=== PATIENT | female | born 1995 | race African-American/Black ===

== ENCOUNTER 2021-01-01 10:42 | Inpatient (IN) ==
[2021-01-11] MEDS ORDERED: GLUCAGON 1 MG VIAL IM PRN (08:19)
[2021-01-11] MEDS ORDERED: DEXTROSE 50% 25 GM/50 ML VIAL IV PRN (08:19)
[2021-01-11] MEDS: INSULIN REGULAR 100 UNIT/ML SUBCUT SCH ×3 (08:40→20:58)
[2021-01-11 08:56] LABS: Basophils % 0.2 % (0.0-0.8); Eosinophils # 0.1 10*3/uL (0.0-0.87); Hematocrit 34.8 VOL% (35.7-47.0); Hemoglobin 11.1 GM/DL (12.0-16.0); Immature Granulocytes % 0.2 %; Immature Granulocytes Absolute 0.01 #; Lymphocytes # 1.3 10*3/uL (1.4-4.0); Lymphocytes % 25.6 % (21.3-54.2); Mean Corpuscular HGB Conc 31.9 GM/DL (32-36); Mean Corpuscular Volume 91.8 FL (87-102); Mean Platelet Volume 9.7 FL (9.6-12.0); Monocytes % 6.6 % (1.7-12.7); Neutrophils % 66.4 % (38.7-73.9); Platelet Count 231 T/CUMM (130-400); Red Blood Count 3.79 MC/CUMM (3.8-5.5); Red Cell Distribution Width 12.7 % (9.3-17.3); White Blood Count 5.2 T/CUMM (4-12)
[2021-01-11 09:02] LABS: Bacteria,Urine Occasional /HPF (Few); Bilirubin,Urine Negative (Negative); Blood, Urine Negative (Negative); Glucose,Urine (UA) >=500 mg/dL (Negative); Ketones,Urine Negative (Negative); Nitrite,Urine Negative (Negative); Protein,Urine Negative; RBC,Urine 3 /HPF (0-4); Squamous Epithelial Cell,Urine Occasional /HPF (0-10); Urine Appearance Slightly Hazy (Clear); Urine Color Yellow (Yellow); Urine Specific Gravity 1.038 (1.001-1.035)
[2021-01-11] MEDS: MULTIVITAMIN (PRENATAL) TABLET PO SCH (09:02)
[2021-01-11] MEDS: FOLIC ACID 1 MG TABLET PO SCH (09:02)
[2021-01-11 09:12] LABS: Calcium 8.9 MG/DL (8.5-10.1); Osmolality,Calculated 276.8 MOS/KG (273-304); Potassium 3.7 MMOL/L (3.5-5.1)
[2021-01-11 10:22] LABS: HIV Antigen/Antibody Result Nonreactive (Nonreactive); Hepatitis B Core IgM Quant 0.13 Index; Hepatitis B Surface Ag Quant < 0.10 Index; Hepatitis B Surface Ag Result Non-Reactive (NonReactive); Hepatitis C Virus Ab Quant < 0.02 Index; Hepatitis C Virus Ab Result Non-Reactive (NonReactive)
[2021-01-11 15:03] LABS: Rubella Antibody IgG Result Reactive (NonReactive)
[2021-01-11] MEDS: ALBUTEROL 2.5 MG/3 ML NEB RESP TX SCH (20:11)
[2021-01-11] MEDS: INSULIN GLARGINE 100 UNIT/ML SUBCUT SCH (20:57)
[2021-01-12] MEDS: ALBUTEROL 2.5 MG/3 ML NEB RESP TX SCH ×2 (08:31→19:11)
[2021-01-12] MEDS: ACETAMINOPHEN 325 MG TABLET PO PRN (08:46)
[2021-01-12] MEDS: INSULIN REGULAR 100 UNIT/ML SUBCUT SCH ×3 (08:47→21:01)
[2021-01-12] MEDS: MULTIVITAMIN (PRENATAL) TABLET PO SCH (09:01)
[2021-01-12] MEDS: FOLIC ACID 1 MG TABLET PO SCH (09:01)
[2021-01-12 12:02] LABS: Total Volume,Urine 1500 ML (400-2000)
[2021-01-12 12:06] LABS: Total Protein 24 Hr Ur Result 270 MG/24HR (0-149.1)
[2021-01-12] MEDS: INSULIN GLARGINE 100 UNIT/ML SUBCUT SCH (20:59)
[2021-01-13] MEDS: ALBUTEROL 2.5 MG/3 ML NEB RESP TX SCH ×2 (07:15→19:37)
[2021-01-13] MEDS: ACETAMINOPHEN 325 MG TABLET PO PRN (07:55)
[2021-01-13] MEDS: INSULIN REGULAR 100 UNIT/ML SUBCUT SCH ×4 (08:16→20:46)
[2021-01-13] MEDS: FOLIC ACID 1 MG TABLET PO SCH (08:16)
[2021-01-13] MEDS: MULTIVITAMIN (PRENATAL) TABLET PO SCH (08:16)
[2021-01-13] MEDS ORDERED: AMPICILLIN INJ 2,000 MG in SODIUM CHLORIDE 0.9% 100 ML IV SCH (18:00)
[2021-01-13] MEDS ORDERED: LACTATED RINGERS 1,000 ML IV SCH (18:00)
[2021-01-13] MEDS: INSULIN GLARGINE 100 UNIT/ML SUBCUT SCH (20:47)
[2021-01-13] MEDS: AMPICILLIN 500 MG CAPSULE PO SCH (22:38)
[2021-01-14] MEDS: INSULIN REGULAR 100 UNIT/ML SUBCUT SCH ×2 (07:37→11:32)
[2021-01-14] MEDS: ALBUTEROL 2.5 MG/3 ML NEB RESP TX SCH (07:38)
[2021-01-14 08:48] VITALS: BP 127/69
[2021-01-14] MEDS: AMPICILLIN 500 MG CAPSULE PO SCH ×2 (08:50→12:37)
[2021-01-14] MEDS: MULTIVITAMIN (PRENATAL) TABLET PO SCH (08:50)
[2021-01-14] MEDS: FOLIC ACID 1 MG TABLET PO SCH (08:50)
[2021-01-14] MEDS ORDERED: AMPICILLIN 500 MG CAPSULE PO SCH (09:00)
== END 2021-01-14 13:10 | disposition home or self-care (01) | DRG 833 ==
LOC: N.LD → N.OB 01-11 07:41
PROVIDERS: ADMIT Obstetrics & Gynecology; ATTEND Obstetrics & Gynecology

== ENCOUNTER 2021-06-05 23:38 | Inpatient (IN) ==
[2021-06-06] MEDS ORDERED: LACTATED RINGERS 1,000 ML IV SCH ×2 (00:30→07:00)
[2021-06-06 00:53] LABS: Basophils % 0.1 % (0.0-0.8); Eosinophils # 0.2 10*3/uL (0.0-0.87); Eosinophils % 2.1 % (0.00-10.9); Hematocrit 30.1 VOL% (35.7-47.0); Hemoglobin 9.9 GM/DL (12.0-16.0); Immature Granulocytes % 0.1 %; Immature Granulocytes Absolute 0.01 #; Lymphocytes # 1.8 10*3/uL (1.4-4.0); Lymphocytes % 25.6 % (21.3-54.2); Mean Corpuscular HGB Conc 32.9 GM/DL (32-36); Mean Corpuscular Volume 90.4 FL (87-102); Mean Platelet Volume 10.4 FL (9.6-12.0); Neutrophils % 63.1 % (38.7-73.9); Platelet Count 202 T/CUMM (130-400); Red Blood Count 3.33 MC/CUMM (3.8-5.5); Red Cell Distribution Width 13.9 % (9.3-17.3); White Blood Count 7.1 T/CUMM (4-12)
[2021-06-06] MEDS ORDERED: ONDANSETRON 4 MG/2 ML VIAL IV ONE (01:29)
[2021-06-06] MEDS ORDERED: FAMOTIDINE 20 MG/2 ML VIAL IV ONE ×2 (01:29→04:00)
[2021-06-06] MEDS ORDERED: CITRIC ACID/SODIUM CITRATE 30 ML UDCUP PO ONE (04:00)
[2021-06-06] MEDS ORDERED: BUPIVACAINE SPINAL 0.75% 2 ML AMP SPINAL ONE (04:41)
[2021-06-06] MEDS ORDERED: ONDANSETRON 4 MG/2 ML VIAL ONE (04:41)
[2021-06-06] MEDS ORDERED: DEXAMETHASONE 4 MG/1 ML VIAL ONE (04:41)
[2021-06-06] MEDS ORDERED: OXYTOCIN 10 UNIT/ML VIAL IM ONE (05:00)
[2021-06-06] MEDS ORDERED: OXYTOCIN/LR 30 UNIT/1,000 ML BAG IV ONE (05:00)
[2021-06-06] MEDS ORDERED: ACETAMINOPHEN INJ 1,000 MG/100 ML VIAL IV ONE (05:45)
[2021-06-06] MEDS ORDERED: KETOROLAC 30 MG/1 ML VIAL ONE (05:45)
[2021-06-06 06:18] LABS: Cord Arterial Blood HCO3 17.3 MMOL/L
[2021-06-06 06:22] LABS: Cord Venous Blood HCO3 18.1 MMOL/L; Cord Venous Blood PCO2 55.6 MMHG; Cord Venous Blood PO2 19.6
[2021-06-06] MEDS ORDERED: ONDANSETRON 4 MG/2 ML VIAL IV PRN (06:33)
[2021-06-06] MEDS ORDERED: RHO(D) IMMUNE GLOBULIN 300 MCG SYRINGE IM ONE (06:33)
[2021-06-06] MEDS ORDERED: ACETAMINOPHEN 325 MG TABLET PO PRN (06:33)
[2021-06-06] MEDS ORDERED: OXYTOCIN/LR 20 UNIT/1,000 ML BAG IV ONE (06:33)
[2021-06-06] MEDS ORDERED: DEXTROSE 50% 25 GM/50 ML SYRINGE IV PRN ×2 (06:33→16:14)
[2021-06-06] MEDS ORDERED: GLUCAGON 1 MG VIAL IM PRN ×2 (06:33→13:52)
[2021-06-06 13:37] LABS: Basophils % 0.1 % (0.0-0.8); Hematocrit 33.5 VOL% (35.7-47.0); Hemoglobin 10.8 GM/DL (12.0-16.0); Immature Granulocytes % 0.4 %; Immature Granulocytes Absolute 0.05 #; Lymphocytes # 0.8 10*3/uL (1.4-4.0); Mean Corpuscular HGB Conc 32.2 GM/DL (32-36); Mean Corpuscular Volume 90.5 FL (87-102); Mean Platelet Volume 10.2 FL (9.6-12.0); Monocytes % 3.2 % (1.7-12.7); Neutrophils % 90.3 % (38.7-73.9); Platelet Count 225 T/CUMM (130-400); Red Cell Distribution Width 13.6 % (9.3-17.3); White Blood Count 13.2 T/CUMM (4-12)
[2021-06-06] MEDS: ceFAZolin 2,000 MG/50 ML DUPLEX IV SCH ×2 (13:51→21:59)
[2021-06-06] MEDS ORDERED: DEXTROSE 50% 25 GM/50 ML VIAL IV PRN (13:52)
[2021-06-06] MEDS: MULTIVITAMIN (PRENATAL) TABLET PO SCH (16:14)
[2021-06-06] MEDS: DOCUSATE SODIUM 100 MG CAPSULE PO SCH ×2 (16:14→20:58)
[2021-06-06] MEDS: INSULIN REGULAR 100 UNIT/ML SUBCUT SCH ×2 (17:30→21:28)
[2021-06-06] MEDS: SIMETHICONE CHEW 80 MG TABLET PO PRN (21:00)
[2021-06-06] MEDS: IBUPROFEN 800 MG TABLET PO PRN (21:01)
[2021-06-07] MEDS: IBUPROFEN 800 MG TABLET PO PRN ×3 (05:06→19:20)
[2021-06-07 05:53] LABS: Basophils % 0.2 % (0.0-0.8); Eosinophils % 0.1 % (0.00-10.9); Hematocrit 28.7 VOL% (35.7-47.0); Hemoglobin 9.4 GM/DL (12.0-16.0); Immature Granulocytes % 0.5 %; Immature Granulocytes Absolute 0.06 #; Lymphocytes # 1.6 10*3/uL (1.4-4.0); Lymphocytes % 13.1 % (21.3-54.2); Mean Corpuscular HGB Conc 32.8 GM/DL (32-36); Mean Corpuscular Volume 90.3 FL (87-102); Mean Platelet Volume 10.6 FL (9.6-12.0); Monocytes % 7.2 % (1.7-12.7); Neutrophils % 78.9 % (38.7-73.9); Platelet Count 217 T/CUMM (130-400); Red Blood Count 3.18 MC/CUMM (3.8-5.5); Red Cell Distribution Width 13.7 % (9.3-17.3); White Blood Count 12.2 T/CUMM (4-12)
[2021-06-07] MEDS: MULTIVITAMIN (PRENATAL) TABLET PO SCH (09:15)
[2021-06-07] MEDS: DOCUSATE SODIUM 100 MG CAPSULE PO SCH ×2 (09:15→19:20)
[2021-06-07] MEDS: METOCLOPRAMIDE 10 MG TABLET PO SCH ×3 (09:15→23:20)
[2021-06-07] MEDS: FERROUS SULFATE 325 MG TABLET PO SCH ×2 (09:15→19:20)
[2021-06-07] MEDS: INSULIN REGULAR 100 UNIT/ML SUBCUT SCH ×4 (12:04→22:30)
[2021-06-07] MEDS ORDERED: MEPERIDINE 50 MG/1 ML VIAL IV PRN (16:13)
[2021-06-07] MEDS ORDERED: MEPERIDINE 50 MG/1 ML VIAL ONE (16:15)
[2021-06-07] MEDS: SIMETHICONE CHEW 80 MG TABLET PO PRN (16:19)
[2021-06-07] MEDS ORDERED: BISACODYL 10 MG SUPP RECTAL PRN (19:10)
[2021-06-07] MEDS ORDERED: MAGNESIUM CITRATE 300 ML BOTTLE PO ONE (19:40)
[2021-06-07] MEDS ORDERED: MEPERIDINE 25 MG/1 ML VIAL IM PRN (20:07)
[2021-06-07] MEDS ORDERED: MEPERIDINE 50 MG/1 ML VIAL IM PRN (20:07)
[2021-06-07] MEDS ORDERED: PROMETHAZINE 25 MG/1 ML VIAL IM PRN (20:07)
[2021-06-08] MEDS: FERROUS SULFATE 325 MG TABLET PO SCH ×3 (00:55→19:25)
[2021-06-08] MEDS: DOCUSATE SODIUM 100 MG CAPSULE PO SCH ×3 (00:56→19:25)
[2021-06-08] MEDS: IBUPROFEN 800 MG TABLET PO PRN ×3 (03:11→19:25)
[2021-06-08] MEDS: oxyCODONE/ACETAMINOPHEN 5-325 MG TABLET PO PRN ×3 (04:11→19:26)
[2021-06-08] MEDS: METOCLOPRAMIDE 10 MG TABLET PO SCH ×2 (08:39→16:41)
[2021-06-08] MEDS: SIMETHICONE CHEW 80 MG TABLET PO PRN ×2 (08:39→19:25)
[2021-06-08] MEDS: MULTIVITAMIN (PRENATAL) TABLET PO SCH (08:39)
[2021-06-08] MEDS: INSULIN REGULAR 100 UNIT/ML SUBCUT SCH ×4 (10:36→22:24)
[2021-06-08] MEDS: MAGNESIUM HYDROXIDE SUSP 30 ML UDCUP PO PRN (19:25)
[2021-06-09] MEDS: METOCLOPRAMIDE 10 MG TABLET PO SCH ×2 (03:01→09:14)
[2021-06-09] MEDS: FERROUS SULFATE 325 MG TABLET PO SCH ×2 (03:02→09:14)
[2021-06-09] MEDS: DOCUSATE SODIUM 100 MG CAPSULE PO SCH ×2 (03:02→09:13)
[2021-06-09] MEDS: IBUPROFEN 800 MG TABLET PO PRN (04:15)
[2021-06-09] MEDS: oxyCODONE/ACETAMINOPHEN 5-325 MG TABLET PO PRN (04:16)
[2021-06-09] MEDS: INSULIN REGULAR 100 UNIT/ML SUBCUT SCH ×3 (07:40→11:52)
[2021-06-09] MEDS: MULTIVITAMIN (PRENATAL) TABLET PO SCH (09:13)
[2021-06-09] MEDS: SIMETHICONE CHEW 80 MG TABLET PO PRN (09:14)
[2021-06-09] MEDS: MAGNESIUM HYDROXIDE SUSP 30 ML UDCUP PO PRN (09:14)
[2021-06-09 12:23] VITALS: BP 133/74
== END 2021-06-09 15:25 | disposition home or self-care (01) | DRG 788 ==
LOC: N.LD 23:38 → N.OB 06-06 10:47
PROVIDERS: ADMIT Obstetrics & Gynecology; ATTEND Obstetrics & Gynecology
PROC: LDCSECT (ICD-10-PCS; 2021-06-06 05:00)